=== PATIENT | male | born 1970 | race Hispanic/Latino ===

== ENCOUNTER 2021-01-14 21:59 | Emergency (ER) | payer OTHER ==
[2021-01-14 23:08] VITALS: BP 109/70
[2021-01-15] MEDS ORDERED: ACETAMINOPHEN 500 MG TAB PO ONE (00:45)
[2021-01-15] MEDS ORDERED: IBUPROFEN 800 MG TAB PO ONE (00:45)
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
== END 2021-01-15 02:00 | disposition home or self-care (01) ==
LOC: ED 21:59
DX: S16.1XXA Strain of muscle, fascia and tendon at neck level, initial encounter (principal); Z87.828 Personal history of other (healed) physical injury and trauma; Z98.890 Other specified postprocedural states; V89.2XXA Person injured in unspecified motor-vehicle accident, traffic, initial encounter; Y93.89 Activity, other specified; Y92.89 Other specified places as the place of occurrence of the external cause; Y99.8 Other external cause status
CPT/HCPCS: 72125

== ENCOUNTER 2021-03-05 21:43 | Emergency (ER) | payer OTHER ==
[2021-03-06 00:43] VITALS: BP 114/66
[2021-03-06] MEDS ORDERED: ACETAMINOPHEN 500 MG TAB PO ONE ×2 (02:16→04:40)
[2021-03-06] MEDS ORDERED: IBUPROFEN 600 MG TAB PO ONE ×2 (02:16→04:40)
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
== END 2021-03-06 05:00 | disposition home or self-care (01) ==
LOC: ED 21:43
DX: M62.838 Other muscle spasm (principal); Z98.890 Other specified postprocedural states; Z79.899 Other long term (current) drug therapy; V49.49XA Driver injured in collision with other motor vehicles in traffic accident, initial encounter; Y92.410 Unspecified street and highway as the place of occurrence of the external cause; Y93.89 Activity, other specified; Y99.8 Other external cause status
CPT/HCPCS: 72125